=== PATIENT | male | born 1955 | race Caucasian/White ===

== ENCOUNTER 2018-02-25 12:11 | Day surgery (SDC) | payer BC ==
[~2018-02-25] VITALS: Ht 182.9 cm; Wt 117.6 kg
[~2018-02-25 12:11] MED LIST: AMLO5 PO; Enbrel25 MG; FEBU40TA PO; FOLI1 PO; FURO40 PO; GABA100 PO; NEBI10 PO; Nexium40 MG PO; PARO25 PO
== END 2018-02-25 15:15 | disposition home or self-care (01) ==
LOC: ORSCSDS 12:11
PROVIDERS: Surgery
PROC: 0DBN8ZX Excision of Sigmoid Colon, Via Natural or Artificial Opening Endoscopic, Diagnostic (ICD-10-PCS; principal; 2018-02-25 13:15)
PROC: 0DBM8ZX Excision of Descending Colon, Via Natural or Artificial Opening Endoscopic, Diagnostic (ICD-10-PCS; principal; 2018-02-25 13:15)
DX: Z12.11 Encounter for screening for malignant neoplasm of colon (principal); Z86.010 Personal history of colon polyps; D12.4 Benign neoplasm of descending colon; D12.5 Benign neoplasm of sigmoid colon; I10 Essential (primary) hypertension; G47.33 Obstructive sleep apnea (adult) (pediatric); G62.9 Polyneuropathy, unspecified; I12.9 Hypertensive chronic kidney disease with stage 1 through stage 4 chronic kidney disease, or unspecified chronic kidney disease; N18.4 Chronic kidney disease, stage 4 (severe); Z79.899 Other long term (current) drug therapy
CPT/HCPCS: 88305; J2250; J7120